=== PATIENT | female | born 1975 | race Caucasian/White ===

== ENCOUNTER 2016-08-10 01:24 | Emergency (ER) | payer BC ==
[~2016-08-10] VITALS: Ht 157.5 cm; Wt 51.3 kg
[2016-08-10 02:23] LABS: HEMATOCRIT 39.3 % (36.0-46.0); MCH 30.9 PG (29.0-34.0); MCHC 36.1 G/DL (30.0-36.0); MCV 85.6 FL (83-99); MEAN PLAT.VOLUME 9.4 uM^3 (9.5-12.4); PLATELET COUNT 229 K/uL (156-360); RBC DIS.WIDTH-CV 12.3 % (11.8-14.6); RBC DIS.WIDTH-SD 37.2 % (39-53); RED BLOOD COUNT 4.59 M/uL (3.80-5.20); WHITE BLOOD COUNT 9.3 K/uL (4.1-10.2)
[2016-08-10 02:36] LABS: D-DIMER ELISA < 0.15 mg/L FEU (< 0.57)
[2016-08-10 02:38] LABS: CHLORIDE 108 mEq/L (99-109); POTASSIUM 3.9 mEq/L (3.7-5.4); SODIUM 139 mEq/L (136-147)
[2016-08-10 02:40] LABS: GLUCOSE 111 mg/dL (70-99)
[2016-08-10 02:42] LABS: ANION GAP 9 MEQ/L (2-14); TOTAL BILIRUBIN 0.9 mg/dL (0.0-1.0)
[2016-08-10 02:44] LABS: ALKALINE PHOSPHATASE 48 IU/L (3-129)
[2016-08-10 02:45] LABS: GFR ESTIMATE (CALCULATED) > 59 mL/min/; UREA NITROGEN (BUN) 15 mg/dL (9-23)
[2016-08-10 02:48] LABS: LIPASE 21 U/L (1.0-51.0)
[2016-08-10 02:50] LABS: TROP-I INTERPRETATION NEGATIVE; TROPONIN-I < 0.01 ng/mL (0.0-0.30)
[2016-08-10 03:19] LABS: ADD MIUA? YES; BILIRUBIN NEGATIVE; BLOOD SMALL; COLOR YELLOW ((YELLOW)); GLUCOSE (STRIP) NEGATIVE; KETONES 20; LEUKOCYTES LARGE; NITRITE NEGATIVE; PROTEIN (STRIP) NEGATIVE; SPECIFIC GRAVITY 1.016 (1.000-1.030); UROBILINOGEN 0.2 MG/DL (0.2-1.0)
[2016-08-10 03:30] LABS: BACTERIA 1+ /HPF; EPITHELIAL CELLS 1+ /HPF; MUCUS TRACE /LPF; RED BLOOD CELLS 0-5 /HPF (0-5); UCUL ADDED? NO; WHITE BLOOD CELLS 20-30 /HPF (0-5)
[2016-08-10] MEDS ORDERED: VALIUM2 MG PO (03:46)
[2016-08-10] MEDS ORDERED: MACRODANTIN100 MG PO (03:46)
[2016-08-10 04:26] VITALS: BP 131/84
== END 2016-08-10 04:28 | disposition home or self-care (01) ==
LOC: EME 01:24
PROVIDERS: Emergency Medicine
DX: N30.00 Acute cystitis without hematuria (principal); F43.9 Reaction to severe stress, unspecified; J45.909 Unspecified asthma, uncomplicated; Z87.891 Personal history of nicotine dependence
CPT/HCPCS: 80053; 81003; 83690; 84443; 84484; 84702; 85027; 85379; 93005; 99281; 99284